=== PATIENT | female | born 1950 | race Caucasian/White ===

== ENCOUNTER → 2020-01-15 | Outpatient (CLI) | payer MEDICARE ==
[~2020-01-15] MED LIST: [UNRECOGNIZED DRUG - OTHER]
== END ==
LOC: CT 14:47
PROVIDERS: ATTEND Internal Medicine
DX: J34.89 Other specified disorders of nose and nasal sinuses (principal); G89.29 Other chronic pain
CPT/HCPCS: 70486

== ENCOUNTER 2020-06-18 09:56 | Observation (INO) | payer MEDICARE, OTHER ==
[~2020-06-18] VITALS: Ht 165.1 cm; Wt 70.3 kg
[2020-06-18] MEDS ORDERED: ASPIRIN 325 MG TAB PO ONE (10:15)
[2020-06-18 10:27] LABS: BASOPHILS % 0.2 % (0.0-1.0); EOSINOPHILS # (AUTO) 0.7 (0.0-0.4); EOSINOPHILS % 7.9 % (0.0-6.0); HEMATOCRIT 25.9 % (34.2-44.1); HEMOGLOBIN 7.9 g/dL (12.0-16.0); LYMPHOCYTES # (AUTO) 1.5 (1.0-3.2); LYMPHOCYTES % 17.8 % (18.0-39.1); MEAN CORPUSCULAR HEMOGLOBIN 29.9 pg (28-32); MEAN CORPUSCULAR HGB CONC 30.5 g/dL (31-35); MEAN CORPUSCULAR VOLUME 98.1 fL (81-99); MONOCYTES # (AUTO) 0.6 (0.2-0.8); MONOCYTES % 6.8 % (4.4-11.3); NEUTROPHILS # (AUTO) 5.5 (2.1-6.9); NEUTROPHILS % 66.8 % (38.7-80.0); PLATELET COUNT 343 x10e3/uL (140-360); RED BLOOD COUNT 2.64 x10e6/uL (3.6-5.1); RED CELL DISTRIBUTION WIDTH 16.2 % (11.7-14.4)
[2020-06-18 10:47] LABS: ALANINE AMINOTRANSFERASE 11 IU/L (0-55); ALBUMIN 2.7 g/dL (3.5-5.0); ALBUMIN/GLOBULIN RATIO 0.8 (0.8-2.0); ALKALINE PHOSPHATASE 53 IU/L (40-150); ANION GAP 16.9 mmol/L (8-16); BLOOD UREA NITROGEN 6 mg/dL (7-26); BUN/CREATININE RATIO 8 (6-25); CALCIUM 8.7 mg/dL (8.4-10.2); CARBON DIOXIDE 32 mmol/L (22-29); CHLORIDE 101 mmol/L (98-107); CREATININE, SERUM 0.73 mg/dL (0.57-1.11); EST GLOMERULAR FILTRATION RATE > 60 ML/MIN (60-); GLUCOSE 95 mg/dL (74-118); POTASSIUM 3.9 mmol/L (3.5-5.1); SODIUM 146 mmol/L (136-145)
[2020-06-18] MEDS ORDERED: PRINIVIL20 MG PO (11:27)
[2020-06-18] MEDS ORDERED: ATORVASTATIN CA40 MG PO (11:27)
[2020-06-18] MEDS ORDERED: QUETIAPINE FUMA25 MG PO (11:27)
[2020-06-18] MEDS ORDERED: NIFEDIPINE ER30 M1 PO (11:27)
[2020-06-18] MEDS ORDERED: DEPAKOTE SPRIN125 MG PO (11:27)
[2020-06-18] MEDS ORDERED: FOLIC ACID PO (11:27)
[2020-06-18] MEDS ORDERED: FUROSEMIDE40 MG PO (11:27)
[2020-06-18] MEDS ORDERED: BUSPIRONE HCL10 MG PO (11:27)
[2020-06-18] MEDS ORDERED: SERTRALINE HCL50 MG PO (11:27)
[2020-06-18] MEDS ORDERED: TRAZODONE HCL50 MG PO (11:27)
[2020-06-18] MEDS ORDERED: ATIVAN0.5 MG PO (11:27)
[2020-06-18] MEDS ORDERED: PANTOPRAZOLE SO40 MG PO (11:27)
[2020-06-18] MEDS ORDERED: SODIUM CHLORIDE 0.9% 250ML 250 ML IV ONE (11:45)
[2020-06-18 13:11] VITALS: BP 110/61
[2020-06-18 15:26] LABS: FERRITIN 49.64 ng/mL (4.63-204.00)
[2020-06-18] MEDS ORDERED: SODIUM CHLORIDE 0.9% 250ML 250 ML ONE (15:39)
[2020-06-18 16:46] VITALS: BP 111/27
[2020-06-18] MEDS ORDERED: LORAZEPAM 0.5 MG TAB PO PRN (17:30)
[2020-06-18] MEDS ORDERED: DIVALPROEX SODIUM PO SCH (17:30)
[2020-06-18] MEDS ORDERED: FUROSEMIDE INJ 10 MG/ML 2 ML VIAL IV ONE (18:00)
[2020-06-18 19:27] VITALS: BP 117/69
[2020-06-18 19:58] VITALS: BP 115/59
[2020-06-18] MEDS ORDERED: TRAZODONE HCL 50 MG TAB PO SCH (20:00)
[2020-06-18] MEDS: DIVALPROEX SODIUM 250 MG TAB...DR PO SCH (20:25)
[2020-06-18] MEDS ORDERED: SERTRALINE HCL 50 MG TAB PO SCH (21:00)
[2020-06-18] MEDS ORDERED: QUETIAPINE FUMARATE 25 MG TAB PO SCH (21:00)
[2020-06-18] MEDS ORDERED: NON-FORMULARY MEDICATION (Atorvastatin Calcium 40 MG) PO SCH (21:00)
[2020-06-18] MEDS ORDERED: ATORVASTATIN 40 MG TAB PO SCH (21:00)
[2020-06-19 01:42] VITALS: BP 128/68
[2020-06-19] MEDS ORDERED: FUROSEMIDE INJ 10 MG/ML 2 ML VIAL IV ONE (05:00)
[2020-06-19] MEDS ORDERED: FUROSEMIDE 20 MG TAB PO ONE (05:00)
[2020-06-19 05:53] LABS: BASOPHILS % 0.4 % (0.0-1.0); EOSINOPHILS # (AUTO) 0.7 (0.0-0.4); HEMATOCRIT 29.2 % (34.2-44.1); HEMOGLOBIN 9.4 g/dL (12.0-16.0); LYMPHOCYTES # (AUTO) 2.2 (1.0-3.2); LYMPHOCYTES % 26.2 % (18.0-39.1); MEAN CORPUSCULAR HEMOGLOBIN 30.4 pg (28-32); MEAN CORPUSCULAR HGB CONC 32.2 g/dL (31-35); MEAN CORPUSCULAR VOLUME 94.5 fL (81-99); MONOCYTES # (AUTO) 0.7 (0.2-0.8); MONOCYTES % 7.9 % (4.4-11.3); NEUTROPHILS # (AUTO) 4.7 (2.1-6.9); NEUTROPHILS % 56.8 % (38.7-80.0); PLATELET COUNT 327 x10e3/uL (140-360); RED BLOOD COUNT 3.09 x10e6/uL (3.6-5.1); RED CELL DISTRIBUTION WIDTH 16.3 % (11.7-14.4)
[2020-06-19 05:56] VITALS: BP 131/55
[2020-06-19 06:16] LABS: ANION GAP 13.3 mmol/L (8-16); BLOOD UREA NITROGEN 7 mg/dL (7-26); BUN/CREATININE RATIO 11 (6-25); CALCIUM 8.5 mg/dL (8.4-10.2); CARBON DIOXIDE 33 mmol/L (22-29); CHLORIDE 101 mmol/L (98-107); CREATININE, SERUM 0.62 mg/dL (0.57-1.11); EST GLOMERULAR FILTRATION RATE > 60 ML/MIN (60-); GLUCOSE 85 mg/dL (74-118); POTASSIUM 3.3 mmol/L (3.5-5.1); SODIUM 144 mmol/L (136-145)
[2020-06-19 08:12] VITALS: BP 135/65
[2020-06-19 08:27] VITALS: BP 135/65
[2020-06-19] MEDS ORDERED: PANTOPRAZOLE SOD 40 MG TABEC PO SCH (09:00)
[2020-06-19] MEDS ORDERED: FOLIC ACID 1 MG TAB PO SCH (09:00)
[2020-06-19] MEDS ORDERED: LISINOPRIL 20 MG TAB PO SCH (09:00)
[2020-06-19] MEDS ORDERED: NON-FORMULARY MEDICATION ([Folic Acid] 1 MG) PO SCH (09:00)
[2020-06-19] MEDS ORDERED: NIFEDIPINE CR 30 MG TAB PO SCH (09:00)
[2020-06-19] MEDS: BUSPIRONE HCL 10 MG TABLET PO SCH ×2 (09:52→16:47)
[2020-06-19] MEDS: DIVALPROEX SODIUM 250 MG TAB...DR PO SCH (09:52)
[2020-06-19] MEDS: FUROSEMIDE 40 MG TAB PO SCH ×2 (09:53→16:47)
[2020-06-19 12:39] VITALS: BP 134/55
[2020-06-19] MEDS ORDERED: POTASSIUM CHLORIDE 10MEQ EA PO ONE (13:30)
[2020-06-19] MEDS ORDERED: POTASSIUM CHLORIDE 10MEQ EA PO SCH (13:30)
[2020-06-19] MEDS ORDERED: TESSALON PERLE100 MG PO (15:39)
[2020-06-19 15:58] VITALS: BP 112/54
== END 2020-06-19 18:23 | disposition home health service (06) ==
LOC: ER 10:22 → ERHOLD 12:01 → MED/SURG2 13:00
PROVIDERS: ADMIT Internal Medicine; ATTEND Internal Medicine
DX: U07.1 COVID-19 (principal); J12.82 Pneumonia due to coronavirus disease 2019; J96.20 Acute and chronic respiratory failure, unspecified whether with hypoxia or hypercapnia; F17.200 Nicotine dependence, unspecified, uncomplicated; F41.1 Generalized anxiety disorder; I11.9 Hypertensive heart disease without heart failure; J44.9 Chronic obstructive pulmonary disease, unspecified; F10.21 Alcohol dependence, in remission; J20.9 Acute bronchitis, unspecified; J44.0 Chronic obstructive pulmonary disease with (acute) lower respiratory infection; Z20.822 Contact with and (suspected) exposure to COVID-19
CPT/HCPCS: 36415 ×2; 71045; 80048; 80053; 82607; 82728; 83540; 83605; 83880; 84484; 85025 ×2; 86850; 86900; 86920; 87040; 93005; 97116; 97161; 99284; G0378 ×2; J1940; J7050; P9016; S0164; U0002

== ENCOUNTER 2020-09-10 11:12 | Inpatient (IN) | payer MEDICARE ==
[2020-09-10] VITALS (14 sets, daily range): BP systolic 82–131; BP diastolic 39–101
[~2020-09-10] VITALS: Ht 165.1 cm; Wt 73.0 kg
[~2020-09-10 11:12] MED LIST changes: +ATIVAN0.5 MG PO; +ATORVASTATIN CA40 MG PO; +BUSPIRONE HCL10 MG PO; +DEPAKOTE SPRIN125 MG PO; +FOLIC ACID PO; +FUROSEMIDE40 MG PO; +HEPARIN SOD (PORCINE) 1000 UNIT/ML SDV ONE; +NIFEDIPINE ER30 M1 PO; +PANTOPRAZOLE SO40 MG PO; +PRINIVIL20 MG PO; +QUETIAPINE FUMA25 MG PO; +SERTRALINE HCL50 MG PO; +TESSALON PERLE100 MG PO; +TRAZODONE HCL50 MG PO
[2020-09-10] MEDS ORDERED: SODIUM CHLORIDE 0.9% 1000ML 1,000 ML IV STA (11:50)
[2020-09-10 11:52] LABS: BASOPHILS % 0.1 % (0.0-1.0); EOSINOPHILS # (AUTO) 0.3 (0.0-0.4); EOSINOPHILS % 3.1 % (0.0-6.0); LYMPHOCYTES # (AUTO) 1.5 (1.0-3.2); LYMPHOCYTES % 16.6 % (18.0-39.1); MONOCYTES # (AUTO) 0.3 (0.2-0.8); MONOCYTES % 3.4 % (4.4-11.3); NEUTROPHILS # (AUTO) 6.9 (2.1-6.9); NEUTROPHILS % 75.9 % (38.7-80.0); PLATELET COUNT 262 x10e3/uL (140-360); RED CELL DISTRIBUTION WIDTH 15.9 % (11.7-14.4)
[2020-09-10] MEDS ORDERED: SODIUM CHLORIDE 0.9% 1000ML 1,000 ML ONE (12:00)
[2020-09-10 12:16] LABS: HEMOGLOBIN 3.9 g/dL (12.0-16.0)
[2020-09-10 12:18] LABS: ALBUMIN 2.4 g/dL (3.5-5.0); ANION GAP 10.2 mmol/L (8-16); CALCIUM 7.9 mg/dL (8.4-10.2); CREATININE, SERUM 1.65 mg/dL (0.57-1.11); POTASSIUM 4.2 mmol/L (3.5-5.1)
[2020-09-10] MEDS ORDERED: SODIUM CHLORIDE 0.9% 250ML 250 ML IV ONE (12:30)
[2020-09-10 12:31] LABS: CLARITY,URINE CLEAR (CLEAR); COLOR,URINE YELLOW (YELLOW); KETONES,URINE NEGATIVE (NEGATIVE); LEUKOCYTE ESTERASE ,URINE NEGATIVE (NEGATIVE); NITRITE,URINE NEGATIVE (NEGATIVE); PROTEIN,URINE DIPSTICK NEGATIVE (NEGATIVE); URINE UROBILINOGEN 0.2 mg/dL (0.2 - 1)
[2020-09-10] MEDS ORDERED: PIPERACILLIN/TAZOBACTAM 2.25 GM in SODIUM CHLORIDE 0.9% 50ML 50 ML IV STA (12:31)
[2020-09-10 12:40] LABS: MAGNESIUM 1.9 MG/DL (1.3-2.1)
[2020-09-10] MEDS ORDERED: SODIUM CHLORIDE 0.9% 1000ML 1,000 ML IV SCH (12:45)
[2020-09-10] MEDS ORDERED: OCTREOTIDE ACETATE 0.05 MG/ML AMP IV ONE (12:45)
[2020-09-10 12:59] LABS: CREATINE KINASE MB 5.5 ng/mL (0-5.0); THYROID STIMULATING HORMONE 4.086 uIU/mL (0.350-4.940)
[2020-09-10] MEDS: NOREPINEPHRINE 8 MG/D5W 250 ML 250 ML IV PRN (13:30)
[2020-09-10 13:38] LABS: B-TYPE NATRIURETIC PEPTIDE2 54.5 pg/mL (0-100)
[2020-09-10] MEDS ORDERED: NOREPINEPHRINE 8 MG/D5W 250 ML 250 ML ONE (13:48)
[2020-09-10] MEDS: Pantoprazole IV 40 MG in SODIUM CHLORIDE 0.9% 50ML 50 ML IV SCH ×3 (13:56→19:18)
[2020-09-10] MEDS: OCTREOTIDE ACETATE 500 MCG in SODIUM CHLORIDE 0.9% 250ML 250 ML IV SCH (13:56)
[2020-09-10] MEDS ORDERED: SODIUM CHLORIDE 0.9% 250ML 250 ML ONE (15:50)
[2020-09-10] MEDS: CEFTRIAXONE 1 GM in SODIUM CHLORIDE 0.9% 50ML 50 ML IV SCH (17:16)
[2020-09-10 20:04] LABS: BASOPHILS % 0.2 % (0.0-1.0); EOSINOPHILS # (AUTO) 0.3 (0.0-0.4); EOSINOPHILS % 2.7 % (0.0-6.0); LYMPHOCYTES # (AUTO) 1.4 (1.0-3.2); MEAN CORPUSCULAR HEMOGLOBIN 29.9 pg (28-32); MEAN CORPUSCULAR HGB CONC 31.1 g/dL (31-35); MEAN CORPUSCULAR VOLUME 96.2 fL (81-99); MONOCYTES # (AUTO) 0.4 (0.2-0.8); NEUTROPHILS # (AUTO) 8.3 (2.1-6.9); NEUTROPHILS % 79.4 % (38.7-80.0); PLATELET COUNT 236 x10e3/uL (140-360); RED BLOOD COUNT 1.57 x10e6/uL (3.6-5.1); RED CELL DISTRIBUTION WIDTH 15.7 % (11.7-14.4)
[2020-09-10 20:07] LABS: HEMATOCRIT 15.1 % (34.2-44.1); HEMOGLOBIN 4.7 g/dL (12.0-16.0)
[2020-09-10 20:28] LABS: CREATINE KINASE MB 7.5 ng/mL (0-5.0)
[2020-09-10] MEDS ORDERED: ACETAMINOPHEN 1000 MG/100 ML IV PRN (20:45)
[2020-09-10] MEDS ORDERED: ACETAMINOPHEN 1000 MG/100 ML 100 ML IV ONE (21:19)
[2020-09-10] MEDS: SERTRALINE HCL 50 MG TAB PO SCH (22:30)
[2020-09-10] MEDS: QUETIAPINE FUMARATE 25 MG TAB PO SCH (22:30)
[2020-09-11] VITALS (17 sets, daily range): BP systolic 89–168; BP diastolic 47–99
[2020-09-11] MEDS: OCTREOTIDE ACETATE 500 MCG in SODIUM CHLORIDE 0.9% 250ML 250 ML IV SCH ×3 (00:03→20:51)
[2020-09-11] MEDS ORDERED: SODIUM CHLORIDE 0.9% 250ML 250 ML ONE ×2 (00:39→06:18)
[2020-09-11 00:41] LABS: BASOPHILS % 0.1 % (0.0-1.0); EOSINOPHILS # (AUTO) 0.2 (0.0-0.4); EOSINOPHILS % 3.1 % (0.0-6.0); LYMPHOCYTES # (AUTO) 1.4 (1.0-3.2); LYMPHOCYTES % 17.9 % (18.0-39.1); MEAN CORPUSCULAR HEMOGLOBIN 30.1 pg (28-32); MEAN CORPUSCULAR HGB CONC 31.1 g/dL (31-35); MEAN CORPUSCULAR VOLUME 96.7 fL (81-99); MONOCYTES # (AUTO) 0.4 (0.2-0.8); MONOCYTES % 4.5 % (4.4-11.3); NEUTROPHILS # (AUTO) 5.8 (2.1-6.9); NEUTROPHILS % 73.6 % (38.7-80.0); PLATELET COUNT 164 x10e3/uL (140-360); RED BLOOD COUNT 1.23 x10e6/uL (3.6-5.1); RED CELL DISTRIBUTION WIDTH 15.9 % (11.7-14.4)
[2020-09-11 00:49] LABS: HEMOGLOBIN 3.7 g/dL (12.0-16.0)
[2020-09-11 00:50] LABS: HEMATOCRIT 11.9 % (34.2-44.1)
[2020-09-11 01:29] LABS: CREATINE KINASE MB 5.9 ng/mL (0-5.0)
[2020-09-11] MEDS: Pantoprazole IV 40 MG in SODIUM CHLORIDE 0.9% 50ML 50 ML IV SCH ×6 (03:00→23:51)
[2020-09-11] MEDS: NOREPINEPHRINE 8 MG/D5W 250 ML 250 ML IV PRN (07:31)
[2020-09-11] MEDS ORDERED: SODIUM CHLORIDE 0.9% 1000ML 1,000 ML IV ONE (09:00)
[2020-09-11] MEDS: CEFTRIAXONE 1 GM in SODIUM CHLORIDE 0.9% 50ML 50 ML IV SCH (09:20)
[2020-09-11 09:21] LABS: BASOPHILS # (AUTO) 0.1 (0.0-0.1); BASOPHILS % 0.5 % (0.0-1.0); EOSINOPHILS # (AUTO) 0.4 (0.0-0.4); EOSINOPHILS % 3.3 % (0.0-6.0); HEMATOCRIT 27.8 % (34.2-44.1); HEMOGLOBIN 9.1 g/dL (12.0-16.0); LYMPHOCYTES # (AUTO) 1.3 (1.0-3.2); MEAN CORPUSCULAR HEMOGLOBIN 30.2 pg (28-32); MEAN CORPUSCULAR HGB CONC 32.7 g/dL (31-35); MONOCYTES # (AUTO) 0.5 (0.2-0.8); MONOCYTES % 4.5 % (4.4-11.3); NEUTROPHILS # (AUTO) 9.7 (2.1-6.9); PLATELET COUNT 164 x10e3/uL (140-360); RED BLOOD COUNT 3.01 x10e6/uL (3.6-5.1)
[2020-09-11 09:36] LABS: MEAN CORPUSCULAR VOLUME 92.4 fL (81-99)
[2020-09-11] MEDS ORDERED: PROPOFOL IV EMULSION 10 MG/ML 20 ML VIAL ONE (09:38)
[2020-09-11 09:44] LABS: ALBUMIN 2.5 g/dL (3.5-5.0); ALBUMIN/GLOBULIN RATIO 1.3 (0.8-2.0); ANION GAP 9.3 mmol/L (8-16); CALCIUM 7.5 mg/dL (8.4-10.2); CREATININE, SERUM 0.84 mg/dL (0.57-1.11); POTASSIUM 4.3 mmol/L (3.5-5.1)
[2020-09-11 10:03] LABS: CREATINE KINASE MB 2.8 ng/mL (0-5.0)
[2020-09-11 10:21] LABS: INR 1.25; PARTIAL THROMBOPLASTIN TIME 28.1 seconds (23.8-35.5); PROTHROMBIN TIME 16.4 seconds (11.9-14.5)
[2020-09-11 14:49] LABS: BASOPHILS # (AUTO) 0.1 (0.0-0.1); BASOPHILS % 0.4 % (0.0-1.0); EOSINOPHILS # (AUTO) 0.4 (0.0-0.4); EOSINOPHILS % 3.1 % (0.0-6.0); HEMOGLOBIN 8.8 g/dL (12.0-16.0); LYMPHOCYTES # (AUTO) 1.1 (1.0-3.2); LYMPHOCYTES % 7.9 % (18.0-39.1); MEAN CORPUSCULAR HEMOGLOBIN 30.1 pg (28-32); MEAN CORPUSCULAR HGB CONC 32.6 g/dL (31-35); MEAN CORPUSCULAR VOLUME 92.5 fL (81-99); MONOCYTES # (AUTO) 0.5 (0.2-0.8); MONOCYTES % 3.9 % (4.4-11.3); NEUTROPHILS # (AUTO) 11.3 (2.1-6.9); NEUTROPHILS % 83.7 % (38.7-80.0); PLATELET COUNT 155 x10e3/uL (140-360); RED BLOOD COUNT 2.92 x10e6/uL (3.6-5.1); RED CELL DISTRIBUTION WIDTH 15.4 % (11.7-14.4)
[2020-09-11] MEDS ORDERED: SODIUM CHLORIDE 0.9% 100 ML ONE (14:56)
[2020-09-11] MEDS ORDERED: IOPAMIDOL 370 MG/ML 200 ML INFUS..BTL INJ ONE (14:56)
[2020-09-11] MEDS ORDERED: LORAZEPAM INJ 2 MG/ML VIAL IV ONE (16:15)
[2020-09-11] MEDS: SERTRALINE HCL 50 MG TAB PO SCH (20:30)
[2020-09-11] MEDS: QUETIAPINE FUMARATE 25 MG TAB PO SCH (20:30)
[2020-09-12] VITALS (22 sets, daily range): BP systolic 101–161; BP diastolic 70–96
[2020-09-12 00:35] LABS: BASOPHILS % 0.3 % (0.0-1.0); EOSINOPHILS # (AUTO) 0.2 (0.0-0.4); EOSINOPHILS % 1.4 % (0.0-6.0); HEMATOCRIT 26.3 % (34.2-44.1); HEMOGLOBIN 8.4 g/dL (12.0-16.0); LYMPHOCYTES # (AUTO) 1.3 (1.0-3.2); LYMPHOCYTES % 8.2 % (18.0-39.1); MEAN CORPUSCULAR HGB CONC 31.9 g/dL (31-35); MEAN CORPUSCULAR VOLUME 93.9 fL (81-99); MONOCYTES # (AUTO) 0.7 (0.2-0.8); MONOCYTES % 4.5 % (4.4-11.3); NEUTROPHILS % 84.7 % (38.7-80.0); PLATELET COUNT 144 x10e3/uL (140-360); RED CELL DISTRIBUTION WIDTH 15.5 % (11.7-14.4)
[2020-09-12] MEDS ORDERED: PHYTONADIONE 10MG/ML 20 MG in SODIUM CHLORIDE 0.9% 50ML 50 ML IV ONE ×2 (02:15→02:30)
[2020-09-12] MEDS: Pantoprazole IV 40 MG in SODIUM CHLORIDE 0.9% 50ML 50 ML IV SCH ×4 (05:46→21:00)
[2020-09-12 05:51] LABS: BASOPHILS # (AUTO) 0.1 (0.0-0.1); BASOPHILS % 0.3 % (0.0-1.0); EOSINOPHILS # (AUTO) 0.3 (0.0-0.4); EOSINOPHILS % 1.8 % (0.0-6.0); HEMATOCRIT 25.9 % (34.2-44.1); HEMOGLOBIN 8.3 g/dL (12.0-16.0); LYMPHOCYTES # (AUTO) 1.6 (1.0-3.2); LYMPHOCYTES % 9.9 % (18.0-39.1); MEAN CORPUSCULAR HEMOGLOBIN 30.5 pg (28-32); MEAN CORPUSCULAR VOLUME 95.2 fL (81-99); MONOCYTES # (AUTO) 0.7 (0.2-0.8); MONOCYTES % 4.4 % (4.4-11.3); NEUTROPHILS # (AUTO) 13.1 (2.1-6.9); NEUTROPHILS % 82.7 % (38.7-80.0); PLATELET COUNT 153 x10e3/uL (140-360); RED BLOOD COUNT 2.72 x10e6/uL (3.6-5.1); RED CELL DISTRIBUTION WIDTH 15.7 % (11.7-14.4)
[2020-09-12 06:11] LABS: ALBUMIN 2.5 g/dL (3.5-5.0); ALBUMIN/GLOBULIN RATIO 1.2 (0.8-2.0); CALCIUM 7.5 mg/dL (8.4-10.2); CREATININE, SERUM 0.7 mg/dL (0.57-1.11)
[2020-09-12 06:28] LABS: CHOL/HDL RATIO 3.6 (3.0-3.6)
[2020-09-12] MEDS: OCTREOTIDE ACETATE 500 MCG in SODIUM CHLORIDE 0.9% 250ML 250 ML IV SCH ×3 (06:50→17:05)
[2020-09-12] MEDS: CEFTRIAXONE 1 GM in SODIUM CHLORIDE 0.9% 50ML 50 ML IV SCH (09:44)
[2020-09-12 12:02] LABS: BASOPHILS % 0.3 % (0.0-1.0); EOSINOPHILS # (AUTO) 0.4 (0.0-0.4); EOSINOPHILS % 2.4 % (0.0-6.0); HEMATOCRIT 25.1 % (34.2-44.1); HEMOGLOBIN 7.9 g/dL (12.0-16.0); MEAN CORPUSCULAR HEMOGLOBIN 30.4 pg (28-32); MEAN CORPUSCULAR HGB CONC 31.5 g/dL (31-35); MEAN CORPUSCULAR VOLUME 96.5 fL (81-99); MONOCYTES # (AUTO) 0.6 (0.2-0.8); MONOCYTES % 3.8 % (4.4-11.3); NEUTROPHILS # (AUTO) 12.8 (2.1-6.9); NEUTROPHILS % 85.7 % (38.7-80.0); PLATELET COUNT 126 x10e3/uL (140-360); RED CELL DISTRIBUTION WIDTH 15.8 % (11.7-14.4)
[2020-09-12 18:37] LABS: BASOPHILS % 0.2 % (0.0-1.0); EOSINOPHILS # (AUTO) 0.5 (0.0-0.4); EOSINOPHILS % 4.3 % (0.0-6.0); HEMATOCRIT 25.3 % (34.2-44.1); HEMOGLOBIN 7.9 g/dL (12.0-16.0); LYMPHOCYTES % 7.7 % (18.0-39.1); MEAN CORPUSCULAR HEMOGLOBIN 30.2 pg (28-32); MEAN CORPUSCULAR HGB CONC 31.2 g/dL (31-35); MEAN CORPUSCULAR VOLUME 96.6 fL (81-99); MONOCYTES # (AUTO) 0.5 (0.2-0.8); MONOCYTES % 4.1 % (4.4-11.3); NEUTROPHILS # (AUTO) 10.4 (2.1-6.9); PLATELET COUNT 135 x10e3/uL (140-360); RED BLOOD COUNT 2.62 x10e6/uL (3.6-5.1); RED CELL DISTRIBUTION WIDTH 15.8 % (11.7-14.4)
[2020-09-12] MEDS: SERTRALINE HCL 50 MG TAB PO SCH (21:00)
[2020-09-12] MEDS: QUETIAPINE FUMARATE 25 MG TAB PO SCH (21:00)
[2020-09-13] VITALS (8 sets, daily range): BP systolic 108–159; BP diastolic 65–81
[2020-09-13] MEDS: Pantoprazole IV 40 MG in SODIUM CHLORIDE 0.9% 50ML 50 ML IV SCH ×4 (01:00→20:30)
[2020-09-13 03:03] LABS: BASOPHILS % 0.3 % (0.0-1.0); EOSINOPHILS # (AUTO) 0.6 (0.0-0.4); EOSINOPHILS % 5.4 % (0.0-6.0); HEMOGLOBIN 7.6 g/dL (12.0-16.0); LYMPHOCYTES # (AUTO) 1.4 (1.0-3.2); LYMPHOCYTES % 13.2 % (18.0-39.1); MEAN CORPUSCULAR HEMOGLOBIN 30.8 pg (28-32); MEAN CORPUSCULAR HGB CONC 31.7 g/dL (31-35); MEAN CORPUSCULAR VOLUME 97.2 fL (81-99); MONOCYTES # (AUTO) 0.6 (0.2-0.8); MONOCYTES % 5.2 % (4.4-11.3); NEUTROPHILS # (AUTO) 8.2 (2.1-6.9); NEUTROPHILS % 75.1 % (38.7-80.0); PLATELET COUNT 141 x10e3/uL (140-360); RED BLOOD COUNT 2.47 x10e6/uL (3.6-5.1); RED CELL DISTRIBUTION WIDTH 15.5 % (11.7-14.4)
[2020-09-13] MEDS ORDERED: BISACODYL 5 MG TAB EC PO ONE ×2 (04:00→04:30)
[2020-09-13] MEDS ORDERED: CITRATE OF MAGNESIA 300ML BOTTLE PO ONE ×2 (05:00→07:00)
[2020-09-13 07:02] LABS: BASOPHILS % 0.3 % (0.0-1.0); EOSINOPHILS # (AUTO) 0.6 (0.0-0.4); EOSINOPHILS % 5.6 % (0.0-6.0); HEMATOCRIT 26.2 % (34.2-44.1); LYMPHOCYTES # (AUTO) 0.8 (1.0-3.2); LYMPHOCYTES % 7.3 % (18.0-39.1); MEAN CORPUSCULAR HEMOGLOBIN 29.9 pg (28-32); MEAN CORPUSCULAR HGB CONC 30.5 g/dL (31-35); MEAN CORPUSCULAR VOLUME 97.8 fL (81-99); MONOCYTES # (AUTO) 0.5 (0.2-0.8); MONOCYTES % 4.5 % (4.4-11.3); NEUTROPHILS # (AUTO) 9.2 (2.1-6.9); NEUTROPHILS % 81.6 % (38.7-80.0); PLATELET COUNT 164 x10e3/uL (140-360); RED BLOOD COUNT 2.68 x10e6/uL (3.6-5.1); RED CELL DISTRIBUTION WIDTH 15.6 % (11.7-14.4)
[2020-09-13 07:37] LABS: ALBUMIN 2.5 g/dL (3.5-5.0); ALBUMIN/GLOBULIN RATIO 1.1 (0.8-2.0); ANION GAP 9.1 mmol/L (8-16); CALCIUM 7.7 mg/dL (8.4-10.2); CREATININE, SERUM 0.69 mg/dL (0.57-1.11); POTASSIUM 4.1 mmol/L (3.5-5.1)
[2020-09-13] MEDS: CEFTRIAXONE 1 GM in SODIUM CHLORIDE 0.9% 50ML 50 ML IV SCH (08:00)
[2020-09-13 08:12] LABS: FERRITIN 37.89 ng/mL (4.63-204.00)
[2020-09-13] MEDS ORDERED: ONDANSETRON HCL INJ 2MG/ML 2ML 2 MG/ML VIAL IV NR ×2 (09:16→09:45)
[2020-09-13] MEDS: OCTREOTIDE ACETATE 500 MCG in SODIUM CHLORIDE 0.9% 250ML 250 ML IV SCH ×2 (13:04→20:30)
[2020-09-13] MEDS ORDERED: PROPOFOL IV EMULSION 10 MG/ML 20 ML VIAL ONE (13:49)
[2020-09-13] MEDS ORDERED: HYOSCYAMINE SULFATE 0.5 MG/ML INJ ONE (13:49)
[2020-09-13 19:17] LABS: BASOPHILS # (AUTO) 0.1 (0.0-0.1); BASOPHILS % 0.4 % (0.0-1.0); EOSINOPHILS # (AUTO) 0.4 (0.0-0.4); EOSINOPHILS % 3.6 % (0.0-6.0); HEMATOCRIT 27.7 % (34.2-44.1); HEMOGLOBIN 8.6 g/dL (12.0-16.0); LYMPHOCYTES # (AUTO) 1.2 (1.0-3.2); LYMPHOCYTES % 10.7 % (18.0-39.1); MEAN CORPUSCULAR HEMOGLOBIN 30.7 pg (28-32); MEAN CORPUSCULAR VOLUME 98.9 fL (81-99); MONOCYTES # (AUTO) 0.6 (0.2-0.8); NEUTROPHILS # (AUTO) 9.2 (2.1-6.9); NEUTROPHILS % 79.1 % (38.7-80.0); PLATELET COUNT 164 x10e3/uL (140-360); RED CELL DISTRIBUTION WIDTH 15.6 % (11.7-14.4)
[2020-09-13] MEDS: QUETIAPINE FUMARATE 25 MG TAB PO SCH (20:30)
[2020-09-13] MEDS: SERTRALINE HCL 50 MG TAB PO SCH (20:30)
[2020-09-14] VITALS (7 sets, daily range): BP systolic 115–145; BP diastolic 50–74
[2020-09-14] MEDS: Pantoprazole IV 40 MG in SODIUM CHLORIDE 0.9% 50ML 50 ML IV SCH (01:45)
[2020-09-14] MEDS: CEFTRIAXONE 1 GM in SODIUM CHLORIDE 0.9% 50ML 50 ML IV SCH (08:32)
[2020-09-14] MEDS: SODIUM FERRIC GLUCONATE COMPLX 125 MG in SODIUM CHLORIDE 0.9% 100 ML 100 ML IV SCH (09:00)
[2020-09-14] MEDS: LORAZEPAM 0.5 MG TAB PO PRN ×2 (15:32→15:39)
[2020-09-14] MEDS: SERTRALINE HCL 50 MG TAB PO SCH (20:42)
[2020-09-14] MEDS: QUETIAPINE FUMARATE 25 MG TAB PO SCH (20:42)
[2020-09-15] VITALS (8 sets, daily range): BP systolic 138–151; BP diastolic 56–89
[2020-09-15 05:18] LABS: BASOPHILS # (AUTO) 0.1 (0.0-0.1); BASOPHILS % 0.5 % (0.0-1.0); EOSINOPHILS # (AUTO) 0.8 (0.0-0.4); EOSINOPHILS % 8.1 % (0.0-6.0); HEMATOCRIT 25.8 % (34.2-44.1); LYMPHOCYTES # (AUTO) 1.2 (1.0-3.2); LYMPHOCYTES % 11.8 % (18.0-39.1); MEAN CORPUSCULAR HEMOGLOBIN 30.3 pg (28-32); MEAN CORPUSCULAR VOLUME 97.7 fL (81-99); MONOCYTES # (AUTO) 0.7 (0.2-0.8); MONOCYTES % 6.3 % (4.4-11.3); NEUTROPHILS # (AUTO) 7.4 (2.1-6.9); NEUTROPHILS % 71.8 % (38.7-80.0); PLATELET COUNT 226 x10e3/uL (140-360); RED BLOOD COUNT 2.64 x10e6/uL (3.6-5.1); RED CELL DISTRIBUTION WIDTH 15.9 % (11.7-14.4)
[2020-09-15] MEDS: CEFTRIAXONE 1 GM in SODIUM CHLORIDE 0.9% 50ML 50 ML IV SCH (11:48)
[2020-09-15] MEDS ORDERED: FERROUS SULFAT325 MG PO (13:23)
[2020-09-15] MEDS ORDERED: PANTOPRAZOLE SO40 MG PO (13:23)
[2020-09-15] MEDS ORDERED: ZITHROMAX250 MG PO (13:26)
[2020-09-15] MEDS: SODIUM FERRIC GLUCONATE COMPLX 125 MG in SODIUM CHLORIDE 0.9% 100 ML 100 ML IV SCH (13:31)
[2020-09-15] MEDS ORDERED: FUROSEMIDE INJ 10 MG/ML 2 ML VIAL IV ONE (14:00)
[2020-09-15] MEDS: QUETIAPINE FUMARATE 25 MG TAB PO SCH (21:00)
[2020-09-15] MEDS: SERTRALINE HCL 50 MG TAB PO SCH (21:00)
[2020-09-16 00:35] VITALS: BP 134/60
[2020-09-16] MEDS ORDERED: CYANOCOBALAMIN INJ 1,000 MCG/ML VIAL IM ONE (01:15)
[2020-09-16 04:39] VITALS: BP 141/62
[2020-09-16 07:55] VITALS: BP 142/68
[2020-09-16 08:11] VITALS: BP 142/68
[2020-09-16] MEDS ORDERED: IRON SUCROSE 100 MG in SODIUM CHLORIDE 0.9% 100 ML 100 ML IV SCH (09:00)
[2020-09-16] MEDS ORDERED: CYANOCOBALAMIN INJ 1,000 MCG/ML VIAL IM SCH (09:00)
[2020-09-16] MEDS: CEFTRIAXONE 1 GM in SODIUM CHLORIDE 0.9% 50ML 50 ML IV SCH (09:19)
[2020-09-16 12:00] VITALS: BP 124/59
[2020-09-16] MEDS ORDERED: SODIUM FERRIC GLUCONATE COMPLX 125 MG in SODIUM CHLORIDE 0.9% 100 ML 100 ML IV SCH (12:00)
[2020-09-16 15:40] VITALS: BP 159/74
== END 2020-09-16 16:10 | disposition home or self-care (01) | DRG 377 ==
LOC: ER 11:31 → ERHOLD 12:46 → ICU 13:39 → MED/SURG3 09-13 18:26
PROVIDERS: ADMIT Internal Medicine; ATTEND Internal Medicine
PROC: 02HV33Z Insertion of Infusion Device into Superior Vena Cava, Percutaneous Approach (ICD-10-PCS; 2020-09-10)
PROC: 0DJ08ZZ Inspection of Upper Intestinal Tract, Via Natural or Artificial Opening Endoscopic (ICD-10-PCS; 2020-09-11)
PROC: 30243N1 Transfusion of Nonautologous Red Blood Cells into Central Vein, Percutaneous Approach (ICD-10-PCS; 2020-09-11)
PROC: 0DJD8ZZ Inspection of Lower Intestinal Tract, Via Natural or Artificial Opening Endoscopic (ICD-10-PCS; principal; 2020-09-13 17:11)
DX: K57.31 Diverticulosis of large intestine without perforation or abscess with bleeding (principal); R57.8 Other shock; G93.41 Metabolic encephalopathy; I21.A1 Myocardial infarction type 2; I50.21 Acute systolic (congestive) heart failure; J96.10 Chronic respiratory failure, unspecified whether with hypoxia or hypercapnia; N17.9 Acute kidney failure, unspecified; D62 Acute posthemorrhagic anemia; D68.9 Coagulation defect, unspecified; I95.9 Hypotension, unspecified; J44.9 Chronic obstructive pulmonary disease, unspecified; F31.9 Bipolar disorder, unspecified; G40.909 Epilepsy, unspecified, not intractable, without status epilepticus; Z86.16 Personal history of COVID-19; E78.5 Hyperlipidemia, unspecified; I11.0 Hypertensive heart disease with heart failure; H91.90 Unspecified hearing loss, unspecified ear
CPT/HCPCS: 36415; 36555; 43239; 45378; 51700; 70450; 71045; 74174; 74176; 74250; 78278; 80053; 80061; 80164; 81001; 82140; 82550; 82553; 82607; 82728; 82746; 82948; 83540; 83605; 83735; 83880; 84443; 84466; 84484; 85025; 85045; 85610; 85730; 86850; 86900; 86920; 87040; 87086; 93005; 93306; 99285; A9512; J0456; J0696; J1644; J1756; J1940; J1980; J2060; J2353; J2354; J2405; J2543; J2916; J3420; J3430; J7030; J7050; P9016; Q9967; U0002

== ENCOUNTER 2020-10-09 12:05 | Inpatient (IN) | payer MEDICARE ==
[~2020-10-09] VITALS: Ht 152.4 cm; Wt 68.0 kg
[~2020-10-09 12:05] MED LIST changes: +FERROUS SULFAT325 MG PO; -HEPARIN SOD (PORCINE) 1000 UNIT/ML SDV ONE; +ZITHROMAX250 MG PO
[2020-10-09] MEDS ORDERED: SODIUM CHLORIDE 0.9% 1000ML 1,000 ML ONE (12:43)
[2020-10-09] MEDS ORDERED: SODIUM CHLORIDE 0.9% 1000ML 1,000 ML IV ONE (12:45)
[2020-10-09 12:52] LABS: BASOPHILS % 0.1 % (0.0-1.0); EOSINOPHILS # (AUTO) 0.1 (0.0-0.4); EOSINOPHILS % 0.8 % (0.0-6.0); LYMPHOCYTES # (AUTO) 2.7 (1.0-3.2); LYMPHOCYTES % 14.4 % (18.0-39.1); MEAN CORPUSCULAR HEMOGLOBIN 31.3 pg (28-32); MEAN CORPUSCULAR HGB CONC 30.7 g/dL (31-35); MONOCYTES # (AUTO) 1.1 (0.2-0.8); MONOCYTES % 5.7 % (4.4-11.3); NEUTROPHILS # (AUTO) 14.1 (2.1-6.9); NEUTROPHILS % 76.7 % (38.7-80.0); PLATELET COUNT 260 x10e3/uL (140-360); RED BLOOD COUNT 1.47 x10e6/uL (3.6-5.1); RED CELL DISTRIBUTION WIDTH 16.2 % (11.7-14.4)
[2020-10-09 13:03] LABS: INR 0.86; PARTIAL THROMBOPLASTIN TIME 21.1 seconds (23.8-35.5); PROTHROMBIN TIME 12.3 seconds (11.9-14.5)
[2020-10-09 13:11] LABS: ALBUMIN 2.8 g/dL (3.5-5.0); ALBUMIN/GLOBULIN RATIO 1.4 (0.8-2.0); ANION GAP 12.2 mmol/L (8-16); CALCIUM 10.7 mg/dL (8.4-10.2); CREATININE, SERUM 1.84 mg/dL (0.57-1.11); POTASSIUM 4.2 mmol/L (3.5-5.1)
[2020-10-09 13:12] LABS: HEMOGLOBIN 4.6 g/dL (12.0-16.0)
[2020-10-09 13:16] LABS: CLARITY,URINE CLEAR (CLEAR); COLOR,URINE YELLOW (YELLOW)
[2020-10-09 13:17] LABS: LEUKOCYTE ESTERASE ,URINE NEGATIVE (NEGATIVE)
[2020-10-09 13:18] LABS: KETONES,URINE NEGATIVE (NEGATIVE); NITRITE,URINE NEGATIVE (NEGATIVE); PROTEIN,URINE DIPSTICK NEGATIVE (NEGATIVE); URINE UROBILINOGEN 0.2 mg/dL (0.2 - 1)
[2020-10-09 13:18] LABS: CREATINE KINASE MB 3.4 ng/mL (0-5.0)
[2020-10-09 13:36] LABS: BACTERIA,URINE FEW /HPF; EPITHELIAL CELLS,URINE FEW /LPF; RBC,URINE 0-5 /HPF (0-5); WBC,URINE (MAN) 0-5 /HPF (0-5)
[2020-10-09] MEDS ORDERED: SODIUM CHLORIDE 0.9% 100 ML ONE (15:28)
[2020-10-09] MEDS ORDERED: IOPAMIDOL 370 MG/ML 200 ML INFUS..BTL INJ ONE (15:28)
[2020-10-09] MEDS ORDERED: SODIUM CHLORIDE 0.9% 250ML 250 ML ONE ×2 (16:10→20:37)
[2020-10-09] MEDS ORDERED: CEFEPIME 1 GM in SODIUM CHLORIDE 0.9% 50ML 50 ML IV ONE (17:15)
[2020-10-09 20:00] VITALS: BP 116/38
[2020-10-09 20:42] VITALS: BP 116/38
[2020-10-09 20:50] VITALS: BP 116/38
[2020-10-09] MEDS ORDERED: LORAZEPAM 0.5 MG TAB PO PRN (21:45)
[2020-10-09] MEDS ORDERED: DIVALPROEX SODIUM PO SCH (21:45)
[2020-10-09] MEDS: FERROUS SULFATE 325 MG TAB PO SCH (22:09)
[2020-10-09] MEDS: TRAZODONE HCL 50 MG TAB PO SCH (22:10)
[2020-10-09 23:55] VITALS: BP 100/60
[2020-10-10] VITALS (10 sets, daily range): BP systolic 100–131; BP diastolic 44–60
[2020-10-10 00:55] LABS: FERRITIN 70.16 ng/mL (4.63-204.00)
[2020-10-10] MEDS ORDERED: SODIUM CHLORIDE 0.9% 250ML 250 ML ONE (03:26)
[2020-10-10] MEDS: Pantoprazole IV 40 MG in SODIUM CHLORIDE 0.9% 50ML 50 ML IV SCH ×5 (03:38→23:20)
[2020-10-10 05:15] LABS: BASOPHILS % 0.2 % (0.0-1.0); EOSINOPHILS # (AUTO) 0.2 (0.0-0.4); EOSINOPHILS % 1.3 % (0.0-6.0); HEMATOCRIT 25.4 % (34.2-44.1); HEMOGLOBIN 8.2 g/dL (12.0-16.0); LYMPHOCYTES # (AUTO) 2.1 (1.0-3.2); LYMPHOCYTES % 17.6 % (18.0-39.1); MEAN CORPUSCULAR HEMOGLOBIN 30.8 pg (28-32); MEAN CORPUSCULAR HGB CONC 32.3 g/dL (31-35); MEAN CORPUSCULAR VOLUME 95.5 fL (81-99); MONOCYTES # (AUTO) 0.6 (0.2-0.8); MONOCYTES % 5.2 % (4.4-11.3); NEUTROPHILS # (AUTO) 8.9 (2.1-6.9); NEUTROPHILS % 74.2 % (38.7-80.0); PLATELET COUNT 209 x10e3/uL (140-360); RED BLOOD COUNT 2.66 x10e6/uL (3.6-5.1); RED CELL DISTRIBUTION WIDTH 16.2 % (11.7-14.4)
[2020-10-10 05:38] LABS: ALBUMIN 2.8 g/dL (3.5-5.0); ALBUMIN/GLOBULIN RATIO 1.4 (0.8-2.0); ANION GAP 9.4 mmol/L (8-16); CALCIUM 9.4 mg/dL (8.4-10.2); CREATININE, SERUM 1.15 mg/dL (0.57-1.11); POTASSIUM 4.4 mmol/L (3.5-5.1)
[2020-10-10] MEDS: BUSPIRONE HCL 10 MG TABLET PO SCH ×2 (09:21→16:46)
[2020-10-10] MEDS: FERROUS SULFATE 325 MG TAB PO SCH ×2 (09:22→23:20)
[2020-10-10] MEDS: BENZONATATE 100 MG CAP PO SCH ×3 (09:22→23:20)
[2020-10-10] MEDS: DIVALPROEX SODIUM 250 MG TAB...DR PO SCH ×2 (09:22→23:20)
[2020-10-10] MEDS ORDERED: MIDAZOLAM HCL 2 MG/2 ML VIAL ONE (13:03)
[2020-10-10] MEDS ORDERED: FENTANYL CITRATE/PF 100MCG/2 ML INJ ONE (13:03)
[2020-10-10] MEDS ORDERED: PROPOFOL IV EMULSION 10 MG/ML 20 ML VIAL ONE (13:06)
[2020-10-10] MEDS ORDERED: LIDOCAINE HCL 2% LOCAL INJ 5 ML SDV VIAL INJ ONE (13:06)
[2020-10-10] MEDS: SUCRALFATE 1 GM TAB PO SCH ×2 (16:46→23:20)
[2020-10-10] MEDS ORDERED: QUETIAPINE FUMARATE 25 MG TAB PO SCH (21:00)
[2020-10-10] MEDS ORDERED: SERTRALINE HCL 50 MG TAB PO SCH (21:00)
[2020-10-10] MEDS: TRAZODONE HCL 50 MG TAB PO SCH (23:20)
[2020-10-11] VITALS: BP 110/53
[2020-10-11] MEDS: Pantoprazole IV 40 MG in SODIUM CHLORIDE 0.9% 50ML 50 ML IV SCH ×3 (02:56→12:00)
[2020-10-11 04:00] VITALS: BP 105/52
[2020-10-11 07:50] VITALS: BP 117/46
[2020-10-11] MEDS: SUCRALFATE 1 GM TAB PO SCH ×2 (08:12→15:17)
[2020-10-11] MEDS: BENZONATATE 100 MG CAP PO SCH ×2 (08:12→15:17)
[2020-10-11] MEDS: FERROUS SULFATE 325 MG TAB PO SCH (08:12)
[2020-10-11] MEDS: DIVALPROEX SODIUM 250 MG TAB...DR PO SCH (08:12)
[2020-10-11] MEDS: BUSPIRONE HCL 10 MG TABLET PO SCH (08:12)
[2020-10-11] MEDS ORDERED: PANTOPRAZOLE SO40 MG PO (09:46)
[2020-10-11] MEDS ORDERED: CARAFATE1 GM PO (09:46)
[2020-10-11 09:58] VITALS: BP 117/46
[2020-10-11 11:35] VITALS: BP 108/45
[2020-10-11 12:35] LABS: BASOPHILS % 0.2 % (0.0-1.0); EOSINOPHILS # (AUTO) 0.4 (0.0-0.4); EOSINOPHILS % 3.4 % (0.0-6.0); HEMATOCRIT 27.7 % (34.2-44.1); HEMOGLOBIN 8.6 g/dL (12.0-16.0); LYMPHOCYTES # (AUTO) 1.9 (1.0-3.2); LYMPHOCYTES % 18.2 % (18.0-39.1); MEAN CORPUSCULAR HEMOGLOBIN 30.7 pg (28-32); MEAN CORPUSCULAR VOLUME 98.9 fL (81-99); MONOCYTES # (AUTO) 0.5 (0.2-0.8); MONOCYTES % 4.9 % (4.4-11.3); NEUTROPHILS # (AUTO) 7.5 (2.1-6.9); NEUTROPHILS % 71.9 % (38.7-80.0); PLATELET COUNT 228 x10e3/uL (140-360); RED CELL DISTRIBUTION WIDTH 15.9 % (11.7-14.4)
[2020-10-11 13:17] LABS: ANION GAP 8.2 mmol/L (8-16); CALCIUM 8.5 mg/dL (8.4-10.2); CREATININE, SERUM 0.77 mg/dL (0.57-1.11); POTASSIUM 4.2 mmol/L (3.5-5.1)
== END 2020-10-11 15:46 | disposition home or self-care (01) | DRG 377 ==
LOC: ER 12:35 → ERHOLD 15:17 → MED/SURG 18:51
PROVIDERS: ADMIT Internal Medicine; ATTEND Internal Medicine
PROC: 30233N1 Transfusion of Nonautologous Red Blood Cells into Peripheral Vein, Percutaneous Approach (ICD-10-PCS; 2020-10-09)
PROC: 02HV33Z Insertion of Infusion Device into Superior Vena Cava, Percutaneous Approach (ICD-10-PCS; 2020-10-09)
PROC: 0DB68ZX Excision of Stomach, Via Natural or Artificial Opening Endoscopic, Diagnostic (ICD-10-PCS; principal; 2020-10-10 15:35)
DX: K25.4 Chronic or unspecified gastric ulcer with hemorrhage (principal); K20.91 Esophagitis, unspecified with bleeding; N17.9 Acute kidney failure, unspecified; J96.10 Chronic respiratory failure, unspecified whether with hypoxia or hypercapnia; D64.9 Anemia, unspecified; K29.71 Gastritis, unspecified, with bleeding; I10 Essential (primary) hypertension; J44.9 Chronic obstructive pulmonary disease, unspecified; Z88.6 Allergy status to analgesic agent; Z88.8 Allergy status to other drugs, medicaments and biological substances; K44.9 Diaphragmatic hernia without obstruction or gangrene; F31.9 Bipolar disorder, unspecified; R53.81 Other malaise; H91.93 Unspecified hearing loss, bilateral; G40.909 Epilepsy, unspecified, not intractable, without status epilepticus; I25.10 Atherosclerotic heart disease of native coronary artery without angina pectoris; Z20.822 Contact with and (suspected) exposure to COVID-19
CPT/HCPCS: 36415; 36555; 36556; 43239; 51700; 71045; 74174; 76937; 77001; 80048; 80053; 81001; 82550; 82553; 82607; 82728; 82746; 83540; 84466; 84484; 85025; 85045; 85610; 85730; 86850; 86900; 86920; 88305; 88312; 88313; 93005; 99284; J0692; J2001; J2250; J3010; J7030; J7050; P9016; Q9967; U0002